=== PATIENT | female | born 1965 | race Caucasian/White ===

== ENCOUNTER 2024-07-31 10:04 | Emergency (ER) | payer OTHER, SELFPAY ==
[2024-07-31 10:15] VITALS: BP 128/72; PULSE 120; RESP 18; TEMP 36.6; O2SAT 99
--- NOTE | 2024-07-31 10:20 | ED.URI ---
HPI - URI/Sore Throat General Chief Complaint: Upper Respiratory Infection Stated Complaint: sinus infection Source: patient and RN notes reviewed Mode of arrival: ambulatory Limitations: no limitations History of Present Illness HPI Narrative: 59-year-old female presented for complaint of nasal congestion drainage, cough; onset 5 days. Woke today with right eye redness and drainage, says the eye was matted shut this morning. Also reports occasional nosebleeds and left ear pressure. Taking Tylenol, ibuprofen and mucinex, and used Amplify eye drops. Pt wears contact lenses. Denies sob, wheezing, vision changes, photophobia, n/v/d/f/c. MD elicited complaint: cough Related Data Home Medications ?Medication ?Instructions ?Recorded ?Confirmed ?Last Taken ?Type pramipexole 0.125 mg tablet mg 07/31/24 Unknown History Allergies Allergy/AdvReac Type Severity Reaction Status Date / Time Sulfa (Sulfonamide Allergy Mild Rash Verified 07/31/24 10:15 Antibiotics) Review of Systems Review of Systems: per HPI Exam Narrative: GENERAL: Mildly Ill-appearing, nontoxic no acute distress. EYES: Right conjunctival injection and purulent drainage, no swelling PERRLA, EOMI ENT: Mucous membranes moist. Right TM unable to visualize due to excess cerumen. Left TM mildly erythematous with clear effusion. No tragal tenderness. Oropharynx not erythematous without lesions or exudate NECK: Supple. No lymphadenopathy CHEST: Clear to auscultation, breath sounds equal. Frequent moist nonproductive cough No wheezing, rhonchi, rales, or stridor. No respiratory distress, speaks in full sentences. HEART: Regular rate and rhythm. SKIN: Warm, dry, no rash. NEURO: Alert and oriented x3. PSYCH: Normal mood and affect Course Course Emergency Course: Patient is aware of diagnosis, understands and agrees to treatment plan. Anticipatory guidance given. Patient agrees to follow-up as directed and is aware of reasons to seek care at the emergency department. Portions of this record may have been created with voice recognition software Level of Care: Express Care Visit Vital Signs Vital signs: Vital Signs Temperature 97.9 F 07/31/24 10:15 Pulse Rate 120 H 07/31/24 10:15 Respiratory Rate 18 07/31/24 10:15 Blood Pressure 128/72 07/31/24 10:15 Pulse Oximetry 99 07/31/24 10:15 Temperature 97.9 F 07/31/24 10:15 Pulse Rate 120 H 07/31/24 10:15 Respiratory Rate 18 07/31/24 10:15 Blood Pressure 128/72 07/31/24 10:15 Pulse Oximetry 99 07/31/24 10:15 reviewed MDM - URI/Sore Throat MDM Narrative Medical decision making narrative: Discussed physical exam findings consistent with sinusitis and right conjunctivitis. Advised supportive measures and signs/symptoms to go to the ER. Pt is appropriate for outpt treatment and f/u. Differential Diagnosis Differential diagnosis: Likely upper respiratory infection, sinusitis and viral infection Discharge Plan Discharge Clinical Impression: Upper respiratory infection Patient Disposition: Home, Self-Care Condition: Stable Instructions: Antibiotic Form, Sinusitis (ED) Additional Instructions: Take steroid as directed Recommendations: Flonase spray and Zyrtec (or Claritin/Celi). You can also use saline nasal mist. over the counter Cough syrup may cause drowsiness; avoid driving or take it at night time. Tylenol 1000mg every 8 hours as needed for pain Push fluids, and increase humidity of the air at home. If no improvement you can start the antibiotic for the eye: Avoid touching or rubbing your eye. Use over the counter lubricating eye drops as needed for irritation Use a warm or cool washcloth on your eye for comfort Use eyedrops as directed - you are contagious for 24 hours after starting the antibiotic Practice good handwashing and hygiene to prevent spread of infection Do not wear the contact lenses. Use a new pair after the infection is resolved. Use new makeup, lashes etc. You may take Tylenol or ibuprofen for pain Follow-up with PCP or professor of historical theology if condition is not improving in 2-3days. Go to the emergency room if you have severe pain or pressure behind your eye, difficulty seeing, or other severe symptoms Patient Language: Palauan Prescriptions: New ofloxacin 0.3 % drops See Rx Instructions .ROUTE .COMPLEX Qty: 10 0RF Rx Instructions: put 2 drops into affected right every 2 hours x 2 days, then 2 drops 4 times/day days 3-7 amoxicillin-pot clavulanate 875-125 mg tablet 1 tablet PO Q12H 7 Days Qty: 14 0RF prednisone 20 mg tablet 40 mg PO DAILY 4 Days Qty: 8 0RF No Action pramipexole 0.125 mg tablet Follow-up/Referrals: PHYSICIAN,STRICKLER ATTENDANT [Primary Care Provider] -
== END 2024-07-31 10:50 | disposition home or self-care (01) ==
PROVIDERS: Emergency Provider Nurse Practitioner Family
DX: J06.9 Acute upper respiratory infection, unspecified (principal)
CPT/HCPCS: 99203; G0463